=== PATIENT | male | born 1930 | race Two or more races ===

== ENCOUNTER 2016-11-29 13:55 | Inpatient (IN) | payer MEDICAID, MEDICARE, OTHER ==
[~2016-11-29] VITALS: Ht 177.8 cm; Wt 70.0 kg
[2016-11-29 14:43] LABS: Basophils # (auto) 0 uL; Basophils % (auto) 0.3 % (0.0-2.0); Eosinophils # (auto) 0.1 uL; Eosinophils % (auto) 2.1 % (0.0-7.0); Hematocrit 39.8 % (41.0-53.0); Hemoglobin 13.1 g/dL (13.5-17.5); Lymphocytes # (auto) 1.4 uL; Lymphocytes % (auto) 24.7 % (10.0-50.0); Mean Corpuscular Hemoglobin 30.1 pg (28.0-32.0); Mean Corpuscular Hgb Conc. 32.8 g/dL (32.0-36.0); Mean Corpuscular Volume 91.8 fL (80.0-100.0); Mean Platelet Volume 7.9 fL (7.4-10.4); Monocytes # (auto) 0.3 uL; Monocytes % (auto) 5.4 % (0.0-12.0); Neutrophils # (auto) 3.8 uL; Neutrophils % (auto) 67.5 % (37.0-80.0); Platelet Count (auto) 217 10^3/uL (140-450); White Blood Cell 5.7 10^3/uL (4.4-10.8)
[2016-11-29 15:02] LABS: Albumin 3.3 g/dL (3.4-5.0); Anion Gap 8 (5-15); Aspartate Aminotransferase 33 U/L (15-37); BUN/Creatinine Ratio 20.5; Blood Urea Nitrogen 35 mg/dL (7-18); Calcium 9.1 mg/dL (8.5-10.1); Carbon Dioxide 29 mmol/L (21-32); Chloride 108 mmol/L (98-107); GFR African American 49 mL/min; GFR Non-African American 40 mL/min; Glucose 100 mg/dL (74-106); Potassium 4.6 mmol/L (3.5-5.1); Sodium 145 mmol/L (136-145)
[2016-11-29 15:07] LABS: Alkaline Phosphatase 67 U/L (45-117); Bilirubin, Total 0.3 mg/dL (0.2-1.0); Total Protein 6.8 g/dL (6.4-8.2)
[2016-11-29 15:12] LABS: INR 0.99 (0.9-1.15); Partial Thromboplastin Time 22.4 sec (22.64-33.71); Prothrombin Time 10.7 sec (9.37-12.3)
[2016-11-29] MEDS ORDERED: SODIUM CHLORIDE 0.9% 1,000 ML IV ONE (15:45)
[2016-11-29 18:00] LABS: Urine Bilirubin Negative (Negative); Urine Blood 1+ /uL (Negative); Urine Color Yellow (Yellow); Urine Glucose Normal (Normal); Urine Hyaline Cast FEW /lpf (0 - 2); Urine Ketone Negative (Negative); Urine Nitrite Negative (Negative); Urine RBC 15 /hpf (0 - 3); Urine Urobilinogen Normal (Negative); Urine pH 6.5 (5.0-8.0)
[2016-11-29] MEDS ORDERED: OMEG1CAP59 PO (18:48)
[2016-11-29] MEDS ORDERED: ASPI81TA27 PO (18:48)
[2016-11-29] MEDS ORDERED: ATOR10TA52 PO (18:48)
[2016-11-29] MEDS ORDERED: TAMS0.4C36 PO (19:06)
[2016-11-29] MEDS ORDERED: GINK500C PO (19:06)
[2016-11-29] MEDS ORDERED: AMLO5TAB2 PO (19:06)
[2016-11-29] MEDS ORDERED: KETOROLAC TROMETH 30 MG/ML 1ML VIAL IV ONE (19:45)
[2016-11-29] MEDS ORDERED: TEMAZEPAM 15 MG CAP PO PRN (21:45)
[2016-11-29] MEDS ORDERED: DOCUSATE SOD 100 MG CAP PO PRN (21:45)
[2016-11-29] MEDS ORDERED: ONDANSETRON HCL 4 MG/2 ML VIAL IV PRN (21:45)
[2016-11-29] MEDS ORDERED: HYDROcodone-ACET 5/325MG TAB PO PRN (21:45)
[2016-11-29] MEDS ORDERED: cloNIDine HCL 0.1 MG TAB PO PRN (21:45)
[2016-11-29] MEDS ORDERED: ACETAMINOPHEN 325 MG TAB PO PRN (21:45)
[2016-11-29] MEDS: ATORVASTATIN 20 MG TAB PO SCH (22:21)
[2016-11-29] MEDS: FAMOTIDINE 20 MG TAB PO SCH (22:22)
[2016-11-29 22:30] VITALS: BP 177/86
[2016-11-29 23:52] VITALS: BP 177/86
[2016-11-30 04:46] VITALS: BP 124/78
[2016-11-30 05:34] LABS: Basophils # (auto) 0 uL; Basophils % (auto) 0.6 % (0.0-2.0); Eosinophils # (auto) 0.2 uL; Eosinophils % (auto) 2.8 % (0.0-7.0); Hematocrit 35.6 % (41.0-53.0); Lymphocytes # (auto) 1.6 uL; Mean Corpuscular Hemoglobin 30.5 pg (28.0-32.0); Mean Corpuscular Hgb Conc. 33.6 g/dL (32.0-36.0); Mean Corpuscular Volume 90.9 fL (80.0-100.0); Monocytes # (auto) 0.4 uL; Monocytes % (auto) 6.3 % (0.0-12.0); Neutrophils # (auto) 3.6 uL; Neutrophils % (auto) 62.3 % (37.0-80.0); Platelet Count (auto) 183 10^3/uL (140-450); Red Cell Distribution Width 14.9 % (11.6-16.0); White Blood Cell 5.7 10^3/uL (4.4-10.8)
[2016-11-30 06:05] LABS: Albumin 2.8 g/dL (3.4-5.0); BUN/Creatinine Ratio 20.9; Bilirubin, Total 0.5 mg/dL (0.2-1.0); Calcium 8.7 mg/dL (8.5-10.1); Potassium 4.6 mmol/L (3.5-5.1); Total Protein 5.9 g/dL (6.4-8.2)
[2016-11-30 08:00] VITALS: BP 136/73
[2016-11-30 08:30] VITALS: BP 154/80
[2016-11-30] MEDS: ENOXAPARIN SOD 40 MG/0.4 ML SYRINGE SC SCH (09:29)
[2016-11-30] MEDS: ASPirin 81 mg TAB PO SCH (09:29)
[2016-11-30] MEDS: FAMOTIDINE 20 MG TAB PO SCH ×2 (09:29→21:25)
[2016-11-30] MEDS: amLODIPine BESYLATE 5 MG TAB PO SCH (09:30)
[2016-11-30 12:00] VITALS: BP 136/73
[2016-11-30 17:00] VITALS: BP 143/79
[2016-11-30] MEDS: TAMSULOSIN HYDROCHLORIDE 0.4 MG CAP PO SCH (18:00)
[2016-11-30] MEDS: ATORVASTATIN 20 MG TAB PO SCH (21:24)
[2016-11-30 22:00] VITALS: BP 167/84
[2016-12-01 05:00] VITALS: BP 135/79
[2016-12-01 08:00] VITALS: BP 142/75
[2016-12-01 08:30] VITALS: BP 142/75
[2016-12-01] MEDS: amLODIPine BESYLATE 5 MG TAB PO SCH (11:44)
[2016-12-01] MEDS: ASPirin 81 mg TAB PO SCH (11:44)
[2016-12-01] MEDS: ENOXAPARIN SOD 40 MG/0.4 ML SYRINGE SC SCH (11:45)
[2016-12-01] MEDS: FAMOTIDINE 20 MG TAB PO SCH ×2 (11:45→21:44)
[2016-12-01 12:47] VITALS: BP 139/73
[2016-12-01 17:03] VITALS: BP 160/83
[2016-12-01] MEDS: TAMSULOSIN HYDROCHLORIDE 0.4 MG CAP PO SCH (18:25)
[2016-12-01] MEDS: ATORVASTATIN 20 MG TAB PO SCH (21:44)
[2016-12-01 22:00] VITALS: BP 118/69
[2016-12-02 05:30] VITALS: BP 129/77
[2016-12-02 08:32] VITALS: BP_SYST 143; BP_SYST 145; BP_SYST 148; BP_DIAS 63; BP_DIAS 82; BP_DIAS 83
[2016-12-02] MEDS: amLODIPine BESYLATE 5 MG TAB PO SCH (09:48)
[2016-12-02] MEDS: ASPirin 81 mg TAB PO SCH (09:48)
[2016-12-02] MEDS: FAMOTIDINE 20 MG TAB PO SCH (09:48)
[2016-12-02] MEDS: ENOXAPARIN SOD 40 MG/0.4 ML SYRINGE SC SCH (09:49)
[2016-12-02] MEDS ORDERED: LIDOCAINE VISCOUS 2% 15ML UD ONE (11:31)
[2016-12-02] MEDS ORDERED: fentaNYL CITRATE 100 MCG/2 ML VL ONE (11:31)
[2016-12-02] MEDS ORDERED: MIDAZOLAM HCL 1MG/1ML-2 ML VIAL ONE (11:32)
[2016-12-02] MEDS ORDERED: FLUMAZENIL 0.1 MG/ML INJ 10ML MDV IV ONE (11:33)
[2016-12-02 12:30] VITALS: BP_SYST 138; BP_SYST 150; BP_DIAS 67; BP_DIAS 71
[2016-12-02 13:07] VITALS: BP 143/63
[2016-12-02] MEDS ORDERED: LIDOCAINE VISCOUS 2% 15ML UD MT ONE (14:45)
[2016-12-02] MEDS ORDERED: MIDAZOLAM HCL 1MG/1ML-2 ML VIAL IV ONE (14:45)
== END 2016-12-02 16:23 | disposition home or self-care (01) | DRG 640 ==
LOC: ER 13:55 → EDBD 13:55 → WEST WING 13:56
PROVIDERS: ADMIT Nurse Practitioner; ATTEND Family Medicine
PROC: B246ZZ4 Ultrasonography of Right and Left Heart, Transesophageal (ICD-10-PCS; principal; 2016-12-02)
DX: E86.0 Dehydration (principal); E43 Unspecified severe protein-calorie malnutrition; R55 Syncope and collapse; E78.5 Hyperlipidemia, unspecified; N18.3 Chronic kidney disease, stage 3 (moderate); W19.XXXA Unspecified fall, initial encounter; E78.00 Pure hypercholesterolemia, unspecified; I05.0 Rheumatic mitral stenosis; I12.9 Hypertensive chronic kidney disease with stage 1 through stage 4 chronic kidney disease, or unspecified chronic kidney disease; I67.2 Cerebral atherosclerosis; I70.0 Atherosclerosis of aorta; I71.4 Abdominal aortic aneurysm, without rupture; Z86.73 Personal history of transient ischemic attack (TIA), and cerebral infarction without residual deficits; Z90.49 Acquired absence of other specified parts of digestive tract; Y93.89 Activity, other specified; Y92.89 Other specified places as the place of occurrence of the external cause; Y99.8 Other external cause status; Z68.22 Body mass index [BMI] 22.0-22.9, adult; Z79.899 Other long term (current) drug therapy
CPT/HCPCS: 36415; 70450; 70551; 71020; 80053; 80320; 81001; 82550; 83735; 84484; 85025; 85610; 85730; 93005; 93306; 93312; 93886; 95819; 96361; 96374; 99291; G0434; J1885; J2250